=== PATIENT | female | born 1985 | race Caucasian/White ===

== ENCOUNTER 2019-04-14 15:36 | Inpatient (IN) | payer BC ==
[2019-04-14 16:20] VITALS: BMI 31.4
[2019-04-14] MEDS ORDERED: hydrALAZINE 20 MG/ML VIAL SLOW IVP PRN (16:26)
--- NOTE | 2019-04-14 16:29 | PDOC.LDHP ---
Labor and Delivery H&P Chief complaint: other (BP eval at 36 weeks 3 days) HPI: Patient of Dr Martini Seen at 1630 in [facility] here for increased BP in office and prior MACHADO 34 yo at 36.3 with 160/90s in office today, sent for BP obs. Patient on low dose ASA and valtrex (no current HSV sxs). Sent for BP obs and labs. First BP here 140/90s. 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 BP non-severe at this moment but just arrived - Plan Plan: observation in L&D (Case discussed with Lianet who called me prior to patient arrival. BP and lab check here. Consider celestone if consideration to delivery under 37 weeks)
[2019-04-14] MEDS ORDERED: Betamet Acet/Betamet Na Ph 30 MG/5 ML VIAL IM SCH (16:45)
--- NOTE | 2019-04-14 16:49 | PDOC.EVN ---
Event Note - Event Note Event Note: BP noted at 160s/90s As over 36 weeks and HX PIH in past, with similar BP in clinic...rec admission for cervical ripening celestone ordered NICU to be notified DX: severe range BPs
[2019-04-14] MEDS ORDERED: Ibuprofen 800 MG TAB PO PRN (16:50)
[2019-04-14] MEDS ORDERED: NS / Oxytocin 40 units/1000ml 1,000 ML IV PRN (16:50)
[2019-04-14] MEDS ORDERED: Ondansetron PF 4 MG/2 ML Vial IVP PRN (16:50)
[2019-04-14] MEDS ORDERED: Promethazine HCl 25 MG/ML VIAL IM PRN (16:50)
[2019-04-14] MEDS ORDERED: Lidocaine 1% (PF) 30 ML VIAL SC PRN (16:50)
[2019-04-14] MEDS ORDERED: Butorphanol Tartrate 1 MG/ML VIAL SLOW IVP PRN (16:50)
[2019-04-14] MEDS ORDERED: Penicillin G Potassium 5 MILL.UNITS in Sodium Chloride 0.9% 100 ML IVPB SCH (17:00)
[2019-04-14] MEDS: Lactated Ringer's 1,000 ML IV SCH (17:13)
[2019-04-14 17:30] LABS: #Basophils 0.1 thou/uL (0.0-0.2); #Eosinphils 0.3 thou/uL (0.0-0.7); #Monocytes 0.6 thou/uL (0.11-0.59); #Neutrophils 8.5 thou/uL (1.40-6.50); %Basophils 0.6 % (0.0-1.0); %Eosinophils 2.5 % (0.0-10.0); %Lymphocytes 23.9 % (21.0-51.0); %Monocytes 5.1 % (0.0-10.0); %Neutrophils 67.8 % (42.0-75.0); Hemoglobin 11.2 g/dL (12.0-16.0); Mean Corpuscular HGB CONC 35.4 g/dL (32.0-36.0); Mean Corpuscular Hemoglobin 31.2 pg (27.0-31.0); Mean Corpuscular Volume 88.2 fL (78.0-98.0); Mean Platelet Volume 7.9 fL (7.4-10.4); Platelet Count 231 thou/uL (130-400); RBC Distribution Width 10.9 % (11.5-14.5); Red Blood Cell (RBC) Count 3.58 mill/uL (4.20-5.40); White Blood Cell (WBC) Count 12.5 thou/uL (4.8-10.8)
[2019-04-14] MEDS: hydrALAZINE 20 MG/ML VIAL SLOW IVP PRN ×2 (17:48→18:47)
[2019-04-14 17:50] LABS: ALT (SGPT) 14 U/L (8-55); AST (SGOT) 13 U/L (5-34); Albumin 3.6 g/dL (3.5-5.0); Alkaline Phosphatase 120 U/L (40-150); Anion Gap 11 mmol/L (10-20); BUN (Urea Nitrogen) 8 mg/dL (7.0-18.7); Bilirubin, Total 0.2 mg/dL (0.2-1.2); Calc. Creatinine Clearance 187 mL/min (70-130); Calcium 8.7 mg/dL (7.8-10.44); Carbon Dioxide 22 mmol/L (22-29); Chloride 107 mmol/L (98-107); Estimated GFR-MDRD Greater than 90; Globulin 2.6 g/dL (2.4-3.5); Glucose 76 mg/dL (70-105); Potassium 3.7 mmol/L (3.5-5.1); Protein, Total 6.2 g/dL (6.0-8.3); Sodium 136 mmol/L (136-145)
[2019-04-14 18:07] LABS: Syphilis Antibody Nonreactive (Nonreactive); Syphilis Antibody Index 0.04 S/CO (<1.00 Non-Reactive)
[2019-04-14 18:08] LABS: HBSAg Index 0.15 S/CO (0-0.99); HIV (1/2) Antibody/Antigen Non-Reactive (NonReactive); HIV 1/2 INDEX 0.08 S/CO (<1.00); Hep B Surf Ag Non-Reactive S/CO (NonReactive)
[2019-04-14] MEDS ORDERED: Labetalol HCl 100 MG/20 ML VIAL SLOW IVP PRN ×2 (18:35→18:36)
[2019-04-14] MEDS ORDERED: Labetalol HCl 100 MG/20 ML VIAL SLOW IVP SCH (18:45)
[2019-04-14] MEDS: Misoprostol 100 MCG TAB VAG SCH ×2 (20:17→23:18)
[2019-04-14] MEDS ORDERED: Fentanyl 4 mcg/Bup 0.1% Cadd 100 ML ONE (23:45)
[2019-04-15] MEDS ORDERED: Lactated Ringer's 500 ML IV PRN (00:25)
[2019-04-15] MEDS ORDERED: diphenhydrAMINE 50 MG/ML VIAL IVP PRN (00:25)
[2019-04-15] MEDS ORDERED: Acetaminophen 325 MG TAB PO PRN (00:25)
[2019-04-15] MEDS ORDERED: Naloxone HCl 0.4 mg/ml Vial IVP PRN ×2 (00:25)
[2019-04-15] MEDS ORDERED: Promethazine HCl 25 MG/ML VIAL IM PRN (00:25)
[2019-04-15] MEDS ORDERED: Ondansetron PF 4 MG/2 ML Vial IVP PRN (00:25)
[2019-04-15] MEDS ORDERED: ePHEDrine/0.9% NaCl/PF SYRINGE 50 mg/10 ml SLOW IVP PRN (00:25)
[2019-04-15] MEDS: Lactated Ringer's 1,000 ML IV SCH ×2 (00:26→08:07)
[2019-04-15] MEDS ORDERED: Communication Order-Pharmacy FS SCH (00:30)
[2019-04-15] MEDS ORDERED: Fentanyl 4 mcg/Bupivacaine 0.1% Cassette 100 ML EPIDURAL SCH (00:30)
[2019-04-15] MEDS: Penicillin G 2.5 MILL.units 2.5 MILL.UNITS in Premix Bag 1 BAG IVPB SCH ×4 (00:32→13:23)
[2019-04-15] MEDS ORDERED: NS w/ Oxytocin 10 units 500 ML IV SCH ×2 (03:30)
[2019-04-15] MEDS ORDERED: Fentanyl 4 mcg/Bup 0.1% Cadd 100 ML ONE ×2 (07:41→13:26)
[2019-04-15] MEDS ORDERED: Misoprostol 200 MCG TAB ONE (16:07)
[2019-04-15] MEDS ORDERED: Carboprost 250 MCG/ML AMP ONE (16:11)
[2019-04-15] MEDS ORDERED: Lanolin Ointment 7 GM TUBE TOP PRN (16:23)
[2019-04-15] MEDS ORDERED: Benzocaine-Menthol 82.5 ML CAN TOP PRN (16:23)
[2019-04-15] MEDS ORDERED: Bisacodyl 10 MG SUPP PR PRN (16:23)
[2019-04-15] MEDS ORDERED: traMADol HCl 50 MG TAB PO PRN (16:23)
[2019-04-15] MEDS ORDERED: Milk Of Magnesia 30 ML UDCUP PO PRN (16:23)
[2019-04-15] MEDS ORDERED: hydrALAZINE 20 MG/ML VIAL SLOW IVP PRN (16:23)
[2019-04-15] MEDS ORDERED: diphenhydrAMINE 25 MG CAP PO PRN (16:23)
[2019-04-15] MEDS ORDERED: NS / Oxytocin 40 units/1000ml 1,000 ML IV SCH (16:30)
[2019-04-15] MEDS: Docusate Calcium (SURFAK) 240 MG CAP PO SCH (21:23)
[2019-04-15] MEDS: Ibuprofen 800 MG TAB PO SCH (21:23)
[2019-04-16] MEDS ORDERED: Sodium Chloride 0.9% 10 ML ONE (05:09)
[2019-04-16] MEDS: Ferrous Sulfate 325 MG TAB PO SCH ×3 (06:27→14:45)
[2019-04-16] MEDS: Ibuprofen 800 MG TAB PO SCH ×3 (06:45→22:19)
[2019-04-16] MEDS: Prenatal Vitamin 1 TAB PO SCH (08:26)
[2019-04-16] MEDS: Docusate Calcium (SURFAK) 240 MG CAP PO SCH ×2 (08:26→22:19)
[2019-04-16] MEDS ORDERED: Adacel (T-DAP) 0.5 ML SYRINGE IM ONE (09:00)
--- NOTE | 2019-04-16 09:37 | PDOC.OPDEL ---
OB Operative/Delivery Note Delivery Dr/Surgeon: Christen Pre-Delivery Diagnosis: medically indicated induction Procedure/Post Delivery Dx: spontaneous vaginal delivery Weeks gestation: 39 Anesthesia: epidural - Findings A Sex: male - 1 min: 9 - 5 min: 9 - Additional Findings/Plan Placenta delivered: spontaneous Repaired Obstetrical Laceration: none Estimated blood loss: 500ML Compilations/Other Findings: UTERINE ATONY RESPONSIVE TO MASSAGE/IV PITOCIN/800 MCG RECTAL CYTOTEC.
--- NOTE | 2019-04-16 09:39 | PDOC.PP ---
Post Progress Note Post Day #: 1 PO intake tolerated: yes Flatus: yes Ambulation: yes Vital Signs (12 hours) Temp Pulse Resp BP Pulse Ox 04/16/19 07:52 97.7 F 89 20 142/79 H 98 04/16/19 04:10 98.9 F 76 20 139/84 97 04/16/19 00:40 98.6 F 88 24 H 136/75 97 04/15/19 21:45 98.4 F 91 20 131/76 98 Weight Weight 207 lb Result Diagrams: 04/14/19 17:20 04/14/19 17:19 Additional Labs: Post Labs Blood Type B POSITIVE 04/14/19 19:34 Hep Bs Antigen Non-Reactive S/CO (NonReactive) 04/14/19 17:19 - Assessment/Plan ppd 0-1. -GESTATIONAL HYPERTENSION. bLOOD PRESSURES IMPROVED. nO SEVERE READINGS OFF MEDS. rOUTINE CARE. oBSERVE BLOOD PRESSURES. DISCHARGE IN AM IF PROGRESSING WELL.
[2019-04-16] MEDS: Misoprostol 100 MCG TAB VAG SCH (14:44)
[2019-04-16] MEDS: Penicillin G 2.5 MILL.units 2.5 MILL.UNITS in Premix Bag 1 BAG IVPB SCH (14:45)
--- NOTE | 2019-04-17 05:18 | PDOC.PP ---
Post Progress Note Post Day #: 2 Subjective: Patient doing well. No significant overnight events. Patient tolerating PO. Ambulating without difficulty. Passing flatus. is going well. PO intake tolerated: yes Flatus: yes Ambulation: yes Vital Signs (12 hours) Temp Pulse Resp BP BP Pulse Ox 04/17/19 02:05 98.0 F 76 20 140/82 99 04/16/19 20:05 98.0 F 99 16 127/74 96 Weight Weight 93.894 kg - Physical Examination General: NAD Cardiovascular: RRR Respiratory: non-labored breathing Abdominal: lochia (minimal, less than period), no distention, appropriately TTP Fundus firm & at: below umbilicus Skin: no rash Psychiatric: A&Ox3, normal affect Result Diagrams: 04/14/19 17:20 04/14/19 17:19 Additional Labs: Post Labs Blood Type B POSITIVE 04/14/19 19:34 Hep Bs Antigen Non-Reactive S/CO (NonReactive) 04/14/19 17:19 (1) Gestational hypertension Code(s): O13.9 - GESTATIONAL HTN W/O SIGNIFICANT PROTEINURIA, UNSP TRIMESTER Status: Acute (2) Vaginal delivery Code(s): O80 - ENCOUNTER FOR FULL-TERM UNCOMPLICATED DELIVERY Status: Acute - Assessment/Plan Routine PP care - PPD #2 - , no complications - well - Routine care - Rh pos Gestational HTN - BP's ranging from 127/74-149/84 - Not requiring PRN medication - Asymptomatic Dispo: D/c home this AM.
[2019-04-17] MEDS: Ibuprofen 800 MG TAB PO SCH (06:03)
[2019-04-17 07:42] VITALS: BP 141/84; TEMP 98.3
[2019-04-17] MEDS: Prenatal Vitamin 1 TAB PO SCH (08:08)
[2019-04-17] MEDS: Ferrous Sulfate 325 MG TAB PO SCH (08:08)
[2019-04-17] MEDS: Docusate Calcium (SURFAK) 240 MG CAP PO SCH (08:08)
== END 2019-04-17 12:23 | disposition home or self-care (01) | DRG 806 ==
LOC: L&D/OP 15:36 → L&D 21:38 → 3SE 04-15 20:06
PROVIDERS: ADMIT Obstetrics & Gynecology; ATTEND Obstetrics & Gynecology
PROC: 10E0XZZ Delivery of Products of Conception, External Approach (ICD-10-PCS; principal; 2019-04-15)
PROC: 10907ZC Drainage of Amniotic Fluid, Therapeutic from Products of Conception, Via Natural or Artificial Opening (ICD-10-PCS; 2019-04-15)
PROC: 3E0P7VZ Introduction of Hormone into Female Reproductive, Via Natural or Artificial Opening (ICD-10-PCS; 2019-04-15)
PROC: 3E033VJ Introduction of Other Hormone into Peripheral Vein, Percutaneous Approach (ICD-10-PCS; 2019-04-15)
DX: O13.4 Gestational [pregnancy-induced] hypertension without significant proteinuria, complicating childbirth (principal); O98.52 Other viral diseases complicating childbirth; Z37.0 Single live birth; O62.2 Other uterine inertia; Z3A.36 36 weeks gestation of pregnancy; B00.9 Herpesviral infection, unspecified; Z79.899 Other long term (current) drug therapy
CPT/HCPCS: 36415; 51702; 80053; 85025; 86780; 86850; 86900; 86901; 87081; 87340; 87389; 99285; J0360; J0702; J2540; J2590; J3490